=== PATIENT | female | born 1980 | race Caucasian/White ===

== ENCOUNTER 2018-03-08 09:26 | Emergency (ER) | payer BC, OTHER ==
[2018-03-08 09:33] VITALS: BP 153/93; PULSE 81; RESP 19; TEMP 98.3
--- NOTE | 2018-03-08 09:54 | ED ---
General Adult HPI - General Chief complaint: Extremity Injury, Lower Stated complaint: knee swelling/pain Time Seen by Provider: 03/08/18 09:35 Source: patient, RN notes reviewed Mode of arrival: ambulatory Limitations: no limitations - History of Present Illness Initial comments: Patient 37-year-old female presented to the emergency room today with a chief complaint of right-sided knee pain. Patient states that she does have a history of knee problems. She states that she went for a walk yesterday. Shortly after coming home she started having some pain. She states worse this morning when she woke up. She denies any specific injury or trauma. Patient states it's worse with flexion. Patient states she feels that anteriorly. She states that when she had similar symptoms the past she went to the orthopedic doctor who pulled fluid from the knee. Patient denies any other complaints or symptoms. Patient denies any recent fever, chills, shortness of breath, chest pain, back pain, abdominal pain, nausea or vomiting, numbness or tingling, headaches or visual changes, or any other complaints. - Related Data Home Medications Medication Instructions Recorded Confirmed Etonogestrel/Ethinyl Estradiol 1 ring VAGINAL Q28D 03/08/18 03/08/18 [Nuvaring Vaginal Ring] Ibuprofen [Advil] 200 mg PO Q6HR PRN 03/08/18 03/08/18 Allergies Allergy/AdvReac Type Severity Reaction Status Date / Time eucalyptus Allergy Anaphylaxis Verified 03/08/18 09:44 Review of Systems ROS Statement: Those systems with pertinent positive or pertinent negative responses have been documented in the HPI. ROS Other: All systems not noted in ROS Statement are negative. Past Medical History Past Medical History: No Reported History History of Any Multi-Drug Resistant Organisms: None Reported Past Surgical History: Orthopedic Surgery, Tonsillectomy Additional Past Surgical History / Comment(s): lasix Past Psychological History: Anxiety, Depression Smoking Status: Never smoker Past Alcohol Use History: Occasional Past Drug Use History: Marijuana General Exam - General Exam Comments Initial Comments: General: The patient is awake and alert, in no distress, and does not appear acutely ill. Neck: The neck is supple, there is no tenderness or JVD. Musculoskeletal: Patient has normal appearance of her knee no obvious deformity. Patient shows good range of motion both flexion and extension. She is tender suprapatellar region. Patient sensations intact. Negative Homans. Pedal pulse 2+. Strength 5/5. Neurological: A&O x 3. CN II-XII intact, There are no obvious motor or sensory deficits. Coordination appears grossly intact. Speech is normal. Skin: Skin is warm and dry and no rashes or lesions are noted. Psychiatric: Normal mood and affect. Limitations: no limitations Course Vital Signs 03/08/18 09:29 Temperature 98.3 F Pulse Rate 81 Respiratory 19 Rate Blood Pressure 153/93 O2 Sat by Pulse 98 Oximetry Medical Decision Making - Medical Decision Making X-ray reviewed negative for any acute abnormalities. Patient is advised to use Max wrap or knee brace for support. Advised ice elevate the affected area and use ibuprofen for pain. Advised following up with the orthopedic doctor next 2 days. Advised return if any symptoms increase or worsen or for any other concerns. Disposition Clinical Impression: Knee pain, right Disposition: HOME SELF-CARE Condition: Good Instructions: Knee Pain (ED) Additional Instructions: Please use medication as discussed. Please follow-up with orthopedic/family doctor in the next 2 days of symptoms have not improved. Please return to emergency room if the symptoms increase or worsen or for any other concerns. Is patient prescribed a controlled substance at d/c from ED?: No Referrals: None,Stated [Primary Care Provider] - 1-2 days Buck Borrego DO [Doctor of Osteopathic Medicine] - 1-2 days Time of Disposition: 10:46
--- NOTE | 2018-03-08 10:13 | XR ---
EXAMINATION TYPE: XR knee complete RT DATE OF EXAM: 03/08/2018 CLINICAL HISTORY: Anterior pain and swelling. TECHNIQUE: Three views of the right knee are obtained. COMPARISON: None. FINDINGS: There is no acute fracture/dislocation evident in right knee. The tri-compartment joint s paces appear within normal limits. The overlying soft tissue appears unremarkable. IMPRESSION: Unremarkable study.
== END 2018-03-08 10:56 | disposition home or self-care (01) ==
LOC: EC 09:26
DX: M25.561 Pain in right knee (principal); Z79.3 Long term (current) use of hormonal contraceptives; Z91.048 Other nonmedicinal substance allergy status
CPT/HCPCS: 99283

== ENCOUNTER → 2022-07-01 | Outpatient (CLI) | payer BC ==
[2022-07-01 22:25] LABS: DNA Double-Stranded NEGATIVE (NEGATIVE)
[2022-07-02 02:13] LABS: C-Peptide 3.61 ng/mL (0.81-3.85)
[2022-07-02 11:15] LABS: APTT 51 Sec(s) (<43); APTT 1:1 Mix 39 Sec(s) (<43); Anti-Thrombin III Antigen 83 % (80 - 120); Dilute Russell Viper Venom 35 Sec(s) (<44)
[2022-07-02 11:16] LABS: Protein S Antigen 56 % (50 - 140)
== END | disposition home or self-care (01) ==
LOC: LABWHC1 07:20
PROVIDERS: ATTEND Family Medicine
DX: Z00.00 Encounter for general adult medical examination without abnormal findings (principal); I10 Essential (primary) hypertension; Z79.899 Other long term (current) drug therapy
CPT/HCPCS: 36415; 82306; 82607; 82746; 83036; 84443; 84681; 85300; 85301; 85302; 85303; 85305; 85306; 85613; 85730; 86225